=== PATIENT | male | born 1945 | race Caucasian/White ===

== ENCOUNTER 2018-09-04 09:41 | Emergency (ER) | payer MEDICARE ==
[~2018-09-04] VITALS: Ht 180.3 cm; Wt 108.0 kg
[2018-09-04] MEDS ORDERED: QUIN10 PO (09:52)
[2018-09-04] MEDS ORDERED: TAMS.4ER PO (09:52)
[2018-09-04 10:48] LABS: BASOPHILS ABSOLUTE AUTO 0.01 K/mm3 (0.00-0.23); BASOPHILS PERCENT AUTO 0 % (0-2); EOSINOPHILS ABSOLUTE AUTO 0.02 K/mm3 (0.00-0.68); EOSINOPHILS PERCENT AUTO 0 % (0-6); Hematocrit 49.1 % (37.0-53.0); Hemoglobin 16.7 g/dL (13.5-17.5); IMMATURE GRAN ABSOLUTE AUTO 0.02 K/mm3 (0.00-0.10); IMMATURE GRAN PERCENT AUTO 0 % (0-1); LYMPHOCYTES ABSOLUTE AUTO 0.77 K/mm3 (0.84-5.20); LYMPHOCYTES PERCENT AUTO 11 % (21-46); MONOCYTES PERCENT AUTO 4 % (4-13); Mean Corpuscular HGB 29.5 pg (26.0-34.0); Mean Corpuscular Volume 87 fL (80-100); Mean Platelet Volume 9.4 fL (9.1-12.4); NEUTROPHILS ABSOLUTE AUTO 5.91 K/mm3 (1.96-9.15); NEUTROPHILS PERCENT AUTO 84 % (41-73); Platelet Count 248 K/mm3 (150-400); RDW Coefficient Variation 12.9 % (11.7-14.2); RDW Standard Deviation 40.5 fL (35.1-46.3); Red Blood Cell Count 5.66 M/mm3 (4.30-5.90); White Blood Cell Count 7.03 K/mm3 (4.00-11.30)
[2018-09-04 11:16] LABS: Anion Gap 7 mmol/L (6-16); Blood Urea Nitrogen 15 mg/dL (8-24); CO2, Blood 27 mmol/L (21-32); Calcium, Blood 9.1 mg/dL (8.5-10.1); Chloride, Blood 104 mmol/L (98-108); Creatinine, Blood 0.84 mg/dL (0.60-1.20); Glomerular Filtration Rate >60 (60-); Glucose, Blood 125 mg/dL (70-99); Potassium, Blood 3.9 mmol/L (3.5-5.5); Sodium, Blood 138 mmol/L (136-145)
[2018-09-04] MEDS ORDERED: PROM25 PO (11:44)
[2018-09-04] MEDS ORDERED: MOTION RELIEF25 MG PO (11:44)
[2018-09-04] MEDS ORDERED: Valium5 MG PO (13:07)
[2018-11-08] MEDS ORDERED: Aspir 8181 MG PO (07:58)
[2018-11-08] MEDS ORDERED: Loratadine10 MG PO (07:59)
[2018-11-08] MEDS ORDERED: Flonase 0.05% N16 GM (07:59)
[2018-11-08] MEDS ORDERED: THERA-D2000 UNIT PO (07:59)
[2018-11-08] MEDS ORDERED: VITAMIN B-125000 MC2 PO (08:00)
== END 2018-09-04 13:40 | disposition home or self-care (01) ==
LOC: ER 09:41
PROVIDERS: Emergency Medicine
DX: R42 Dizziness and giddiness (principal); R11.2 Nausea with vomiting, unspecified; I10 Essential (primary) hypertension; Z79.899 Other long term (current) drug therapy
CPT/HCPCS: 80048; 85025; 93005; 93010; 96374; 99284-25; A9270-GY; J2550

== ENCOUNTER 2018-11-14 08:19 | Day surgery (SDC) | payer MEDICARE ==
[~2018-11-14] VITALS: Ht 180.3 cm; Wt 106.7 kg
[~2018-11-14 08:19] MED LIST: Aspir 8181 MG PO; Flonase 0.05% N16 GM; Loratadine10 MG PO; MOTION RELIEF25 MG PO; PROM25 PO; QUIN10 PO; TAMS.4ER PO; THERA-D2000 UNIT PO; VITAMIN B-125000 MC2 PO; Valium5 MG PO
--- NOTE | 2018-11-14 10:28 | NUR ---
11/14/18 1028 Mickie Todd PT AMBULATED TO RESTROOM PRIOR TO GOING INTO OR.
== END 2018-11-14 11:59 | disposition home or self-care (01) ==
LOC: ORSCSDS 08:19
PROVIDERS: Ophthalmology
PROC: 08SQXZZ Reposition Right Lower Eyelid, External Approach (ICD-10-PCS; principal; 2018-11-14 10:00)
DX: H02.042 Spastic entropion of right lower eyelid (principal); I10 Essential (primary) hypertension; R42 Dizziness and giddiness; Z79.899 Other long term (current) drug therapy
CPT/HCPCS: J2250; J2704; J3010; J7120

== ENCOUNTER 2019-12-16 11:48 | Day surgery (SDC) | payer MEDICARE ==
[~2019-12-16] VITALS: Ht 180.3 cm; Wt 107.7 kg
== END 2019-12-16 14:12 | disposition home or self-care (01) ==
LOC: ORSCSDS 11:48
PROVIDERS: Internal Medicine Gastroenterology
PROC: 0DBH8ZX Excision of Cecum, Via Natural or Artificial Opening Endoscopic, Diagnostic (ICD-10-PCS; principal; 2019-12-16 13:15)
DX: Z12.11 Encounter for screening for malignant neoplasm of colon (principal); D12.0 Benign neoplasm of cecum; K57.30 Diverticulosis of large intestine without perforation or abscess without bleeding; I10 Essential (primary) hypertension; E78.5 Hyperlipidemia, unspecified; Z79.82 Long term (current) use of aspirin; Z87.891 Personal history of nicotine dependence; Z79.899 Other long term (current) drug therapy
CPT/HCPCS: 86803; 88305; J2704; J7120